=== PATIENT | female | born 1940 | race Caucasian/White ===

== ENCOUNTER 2016-04-24 10:00 | Outpatient (CLI) | payer OTHER ==
--- NOTE | 2016-04-24 19:30 | DIAGNOSTIC IMAGING REPORT ---
PROCEDURE: MG BILATERAL SCREENING W/CAD INDICATION: Screening, personal history of benign right breast lumpectomy and skin cancer TECHNIQUE: Standard CC and MLO views bilaterally. Computer aided detection was used. COMPARISON: 10/11/2013, 12/09/2011, 04/25/2009 FINDINGS: Heterogeneous moderately dense fibroglandular tissue is present bilaterally. 4 mm asymmetric glandular density developing in the central medial aspect of the left breast seen on the CC view. No areas of architectural distortion, or suspicious microcalcifications. IMPRESSION: 1. Focal glandular asymmetry in the left breast. This is likely overlapping tissue, but further evaluation with spot compression, direct lateral left mammogram, and possible ultrasound is recommended. 2. The patient will be contacted. RESULT CODE: 0- Incomplete; needs additional evaluation. A. A negative report should not delay biopsy if a dominant or clinically suspicious mass is present. 10-15% of cancers are not identified by x-ray. B. A negative report may reinforce clinical impression. C. Adenosis and dense breasts may obscure an underlying neoplasm. D. False positive reports average 6-10%. E.. A yearly screening mammogram is recommended. A reminder letter will be scheduled.
== END 2016-04-24 23:00 | disposition home or self-care (01) ==
LOC: MAM SRH 10:00
DX: Z12.31 Encounter for screening mammogram for malignant neoplasm of breast (principal); Z98.890 Other specified postprocedural states; Z85.828 Personal history of other malignant neoplasm of skin

== ENCOUNTER 2016-05-04 10:52 | Outpatient (CLI) | payer OTHER ==
--- NOTE | 2016-05-04 14:15 | DIAGNOSTIC IMAGING REPORT ---
PROCEDURE: MG UNILATERAL DIAG-LT W/CAD INDICATION: F/U ABN MAMM TECHNIQUE: Spot compression mammographic views of the left breast in the CC and MLO projection. A direct lateral left breast mammogram using CAD. The patient then went to ultrasound where aguilar-scale and color Doppler sonographic imaging of the left breast was performed. COMPARISON: 04/24/2016, 10/11/2013, 12/09/2011 FINDINGS: Mammograms: With focal spot compression, the density in the medial left breast seen on screening mammography dissipates. A heterogeneous moderately dense glandular tissue remains. No persistent architectural distortion. Ultrasound: Heterogeneous dense fibroglandular tissue is present. No discrete persistent mass. No abnormal vascularity. IMPRESSION: 1. No mammographic or sonographic abnormality with special mammographic views and ultrasound. 2. The screening abnormality corresponds to overlapping glandularity. 3. The patient can return to yearly screening mammography. Findings and recommendations were discussed with the patient. RESULT CODE: 1- Negative. A. A negative report should not delay biopsy if a dominant or clinically suspicious mass is present. 10-15% of cancers are not identified by x-ray. B. A negative report may reinforce clinical impression. C. Adenosis and dense breasts may obscure an underlying neoplasm. D. False positive reports average 6-10%. E.. A yearly screening mammogram is recommended. A reminder letter will be scheduled.
== END 2016-05-04 23:00 ==
LOC: MAM SRH 10:52
DX: Z12.31 Encounter for screening mammogram for malignant neoplasm of breast (principal)